=== PATIENT | male | born 1945 | race Caucasian/White ===

== ENCOUNTER 2018-11-15 14:29 | Emergency (ER) | payer OTHER ==
[~2018-11-15] VITALS: Wt 68.2 kg
[~2018-11-15 14:29] MED LIST: ALPR0.5T PO; ASPI-1044 PO; BACL10TA PO; METO-448 PO; SIMV20TA2 PO; TAMS0.4C2 PO; TEMA-106 PO; VENL-42 PO; [UNRECOGNIZED DRUG - CODE] PO
[2018-11-15] MEDS ORDERED: LIDOCAINE 1% (MDV) 20 ML INJ SC ONE (16:00)
[2018-11-15] MEDS ORDERED: DIPHTH/TET/ACEL PERTUSS (ADULT) 0.5 ML VIAL IM* ONE (16:00)
--- NOTE | 2018-11-15 18:46 | ERD ---
ER Documentation Chief Complaint Chief Complaint MECHANICAL FALL AT HOME, LAC TO BACK OF HEAD NO TKO PER REPORT HX CVA HPI This is a pleasant 73-year-old male who presents for evaluation of mechanical fall at home earlier today, he suffered laceration to the back of his head. He had no loss of consciousness he has a prior history of stroke affecting his right upper and lower extremity. He had no vomiting, he denies neck pain, he suffered his laceration, but the bleeding was controlled. He has no confusion and no altered mental state. ROS All systems reviewed and are negative except as per history of present illness. Medications Home Meds Reported Medications Alprazolam* (Xanax*) 0.5 Mg Tab, 0.5 MG PO BID 12/30/13 Metoprolol Tartrate* (Lopressor*) 25 Mg Tab, 25 MG PO BID, TAB 12/30/13 Tamsulosin Hcl* (Tamsulosin Hcl*) 0.4 Mg Cap.er.24h, 0.4 MG PO DAILY 12/30/13 Aliskiren Hemifumarate* (Tekturna*) 150 Mg Tablet, 150 MG PO 12/30/13 Aspirin Delayed Release (Aspirin Delayed Release) 81 Mg Tablet.dr, 81 MG PO DAILY 12/30/13 Simvastatin (Simvastatin) 20 Mg Tablet, 20 MG PO DAILY 12/30/13 Baclofen* (Lioresal*) 10 Mg Tab, 10 MG PO BID, TAB 12/30/13 Temazepam (Restoril) 15 Mg Cap, 7.5 MG PO HS PRN for SLEEP, CAP 12/30/13 Venlafaxine Hcl* (Venlafaxine Hcl ER*) 37.5 Mg Cap.er.24h, 37.5 MG PO DAILY 12/30/13 Allergies Allergies: Coded Allergies: No Known Allergy (Unverified , 12/30/13) PMhx/Soc History of Surgery: No Anesthesia Reaction: No Hx Neurological Disorder: Yes (hx cva) Hx Respiratory Disorders: No Hx Cardiac Disorders: Yes (htn) Hx Psychiatric Problems: Yes (depression) Hx Alcohol Use: No Hx Substance Use: No Hx Tobacco Use: No Smoking Status: Never smoker Physical Exam Vitals Vital Signs Date Temp Pulse Resp B/P (MAP) Pulse Ox O2 O2 Flow FiO2 Time Delivery Rate 11/15/18 98.5 96 20 125/59 98 Room Air 19:18 (81) 11/15/18 97.9 61 20 132/63 96 14:44 (86) Physical Exam Const: No acute distress Head: Approximate 3 cm laceration to the occiput, no periorbital ecchymosis, no kolb signs, midface is stable Eyes: Normal Conjunctiva ENT: Normal External Ears, Nose and Mouth. Neck: Full range of motion. No meningismus, no midline tenderness, no step-off Resp: Clear to auscultation bilaterally Cardio: Regular rate and rhythm, no murmurs Abd: Soft, non tender, non distended. Normal bowel sounds Skin: No petechiae or rashes Back: No midline or flank tenderness Ext: No cyanosis, or edema upper Extremity - bilateral: Skin: No laceration, or evidence of external trauma Compartments: Soft Motor: Full active range of motion shoulder/elbow/wrist/hand Sensation: Intact shoulder/pinky/middle finger/thumb web space Bones: Nontender humerus/elbow/forearm/wrist/hand Snuffbox: Nontender Joints: No effusion Pulses/Perfusion: 2+ radial, Capillary refill < 2 seconds Neur: Awake and alert, cranial nerves II through XII intact, no cerebellar ataxia Psych: Normal Mood and Affect Results 24 hrs Current Medications Medications Dose Sig/Adam Start Time Status Last (Trade) Ordered Route PRN Stop Time Admin Dose Reason Admin Diphtheria/ 0.5 ml ONCE ONCE 11/15/18 DC 11/15/18 Tetanus/Acell IM* 16:00 16:41 Pertussis 11/15/18 16:01 (Adacel) Lidocaine 20 ml ONCE ONCE 11/15/18 DC (Xylocaine SC 16:00 1% (Mdv) 20 11/15/18 16:01 ml) Procedures/MDM This 73-year-old male presents for evaluation of mechanical fall. Given his age CT brain and CT C-spine were performed which were negative for acute findings, patient's laceration was uncomplicated and repaired by mid-level provider, tetanus was also updated. On reevaluation, the patient remained hemodynamically and neurologically stable, he had no syncopal episode, and I do not suspect a cardiac etiology for his fall given that he can provide a clear history of a mechanical fall. At discharge the patient was in no acute distress per Departure Diagnosis: Primary Impression: Fall Encounter type: initial encounter Qualified Codes: W19.XXXA - Unspecified fall, initial encounter Additional Impression: ANIKA Valerio MD Nov 15, 2018 18:46
[2018-11-15 19:18] VITALS: BP 125/59; PULSE 96; RESP 20
== END 2018-11-15 19:20 | disposition home or self-care (01) ==
LOC: FTE 14:29
DX: S01.01XA Laceration without foreign body of scalp, initial encounter (principal); I10 Essential (primary) hypertension; W18.30XA Fall on same level, unspecified, initial encounter; Y92.009 Unspecified place in unspecified non-institutional (private) residence as the place of occurrence of the external cause; Z23 Encounter for immunization; Z79.82 Long term (current) use of aspirin; Z86.73 Personal history of transient ischemic attack (TIA), and cerebral infarction without residual deficits
CPT/HCPCS: 70450; 72125; 90471; 90715